=== PATIENT | male | born 1965 | race Caucasian/White ===

== ENCOUNTER 2016-12-30 18:42 | Emergency (ER) | payer BC ==
--- NOTE | 2016-12-30 19:31 | ED ---
Psych HPI - General Chief Complaint: Psychiatric Symptoms Stated Complaint: Mental health Time Seen by Provider: 12/30/16 18:49 Source: patient, RN notes reviewed Mode of arrival: ambulatory - History of Present Illness Initial Comments: Patient is a 51-year-old male presents to the emergency room for psych evaluation. Patient states he has a history of depression. Patient states he had a divorce a few years ago which has caused him to be depressed. Patient states over the past 2 months he has not been feeling like himself. Patient states he can't put a finger on what is causing it. Patient states that he takes Lexapro. Patient states Lexapro has not been helping. Patient states he feels like he can't take care of his son. Patient denies any suicidal ideations but at times thinks about going to sleep and not waking up. Patient denies homicidal ideations. Patient denies visual or auditory hallucinations. Patient does state he has a history of alcohol abuse. Patient states he used to drink large amounts of liquor about 4 years ago. Patient states over the past few months he drinks about 8 beers during the weekdays along with 2 shots of liquor. Patient states the last time he had any alcohol was Friday night. Patient denies illicit drug use. Patient denies any significant medical history. Patient denies chest pain, shortness of breath, headache, dizziness, abdominal pain, nausea, vomiting, diarrhea, constipation. Patient states he thinks he needs an adjustment in his medications. Patient states that he used to take Xanax that used to work for him. - Related Data Home Medications Medication Instructions Recorded Confirmed Escitalopram [Lexapro] 20 mg PO DAILY 12/30/16 12/30/16 Allergies Allergy/AdvReac Type Severity Reaction Status Date / Time No Known Allergies Allergy Verified 12/30/16 19:39 Review of Systems ROS Statement: Those systems with pertinent positive or pertinent negative responses have been documented in the HPI. ROS Other: All systems not noted in ROS Statement are negative. Past Medical History Past Medical History: No Reported History History of Any Multi-Drug Resistant Organisms: None Reported Past Surgical History: Hernia Repair Past Psychological History: Depression Smoking Status: Current some day smoker Past Alcohol Use History: Occasional Past Drug Use History: None Reported General Exam - General Exam Comments Initial Comments: Sitting in exam room, no acute distress. Limitations: no limitations General appearance: alert, in no apparent distress Head exam: Present: atraumatic, normocephalic, normal inspection Eye exam: Present: normal appearance ENT exam: Present: normal exam Neck exam: Present: normal inspection Respiratory exam: Present: normal lung sounds bilaterally. Absent: respiratory distress Cardiovascular Exam: Present: regular rate, normal rhythm, normal heart sounds Extremities exam: Present: normal inspection Back exam: Present: normal inspection Neurological exam: Present: alert, oriented X3, CN II-XII intact, normal gait Psychiatric exam: Present: normal affect, normal mood Skin exam: Present: warm, dry, intact, normal color. Absent: rash Course Vital Signs 12/30/16 12/30/16 18:47 22:24 Temperature 97.0 F L 97.4 F L Pulse Rate 64 58 L Respiratory 18 16 Rate Blood Pressure 166/98 127/82 O2 Sat by Pulse 97 98 Oximetry Medical Decision Making - Medical Decision Making Patient is a 51-year-old male presents to the emergency room for psych evaluation. Patient medically cleared to be evaluated by psych. Patient was evaluated by psych and does meet admission criteria. However, there are no rooms open inside the hospital at this time. Patient's brother and sister-in- law agreed to take patient home and will keep a close eye on patient and keep him safe. Patient be brought here tomorrow morning for reevaluation and possible admission. - Lab Data Lab Results 12/30/16 Range/Units 19:54 Urine Opiates Screen Not Detected (NotDetected) Ur Oxycodone Screen Not Detected (NotDetected) Urine Methadone Screen Not Detected (NotDetected) Ur Propoxyphene Screen Not Detected (NotDetected) Ur Barbiturates Screen Not Detected (NotDetected) U Tricyclic Antidepress Not Detected (NotDetected) Ur Phencyclidine Scrn Not Detected (NotDetected) Ur Amphetamines Screen Not Detected (NotDetected) U Methamphetamines Scrn Not Detected (NotDetected) U Benzodiazepines Scrn Not Detected (NotDetected) Urine Cocaine Screen Not Detected (NotDetected) U Marijuana (THC) Screen Not Detected (NotDetected) Disposition Clinical Impression: Depression, Suicidal ideation Disposition: HOME SELF-CARE Condition: Stable Instructions: Depression (ED) Additional Instructions: Please return tomorrow morning. If any new symptom arises or symptoms worsen, return to ER as soon as possible. Referrals: Bryce Curry DO [Primary Care Provider] - 1-2 days Time of Disposition: 22:18
[2016-12-30] MEDS ORDERED: LORazepam 1 MG TAB PO STA (21:17)
[2016-12-30 22:25] VITALS: BP 127/82; PULSE 58; RESP 16; TEMP 97.4
== END 2016-12-30 22:25 | disposition home or self-care (01) ==
LOC: EC 18:42
DX: F32.9 Major depressive disorder, single episode, unspecified (principal); R45.851 Suicidal ideations; F17.200 Nicotine dependence, unspecified, uncomplicated; Z79.899 Other long term (current) drug therapy
CPT/HCPCS: 80306; 82075; 99284

== ENCOUNTER 2016-12-31 09:24 | Inpatient (IN) | payer BC ==
[2016-12-31] MEDS ORDERED: NICOTINE 21MG/24HR PATCH TRANSDERM STA (09:54)
--- NOTE | 2016-12-31 10:12 | ED ---
General Adult HPI - General Chief complaint: Psychiatric Symptoms Stated complaint: mental health Time Seen by Provider: 12/31/16 09:30 Source: patient, family, RN notes reviewed Mode of arrival: ambulatory Limitations: no limitations - History of Present Illness Initial comments: This is a 51-year-old male who presents emergency Department with a past history significant for depression. Patient comes in today after having been seen in the emergency department last night for increasing depression. Patient was supposed to be transferred to a psychiatric facility be did not want [facility] so if safe home was found for him and he went home with those people and return this morning because of the depression. Patient also states she is a daily drinker but hasn't drank since Friday. Patient does state that all of a sudden he has lost his motivation and does not even want to get up in the morning. Patient stopped going to work about 6 months ago and he recently got another job and he woke up Friday morning didn't go to work didn't answer the phone when his boss was calling him. Stated he just had no energy anymore to do any of that. Patient states he is not suicidal or homicidal even though he is made some comments that people could construe is suicidal he states he has not. According to family he made some comments about not wanting to see his 12- year-old son and according to them that is significant because he lives to see his son. - Related Data Home Medications Medication Instructions Recorded Confirmed Escitalopram [Lexapro] 20 mg PO DAILY 12/30/16 12/31/16 Allergies Allergy/AdvReac Type Severity Reaction Status Date / Time No Known Allergies Allergy Verified 12/31/16 11:10 Review of Systems ROS Statement: Those systems with pertinent positive or pertinent negative responses have been documented in the HPI. ROS Other: All systems not noted in ROS Statement are negative. Past Medical History Past Medical History: No Reported History History of Any Multi-Drug Resistant Organisms: None Reported Past Surgical History: Hernia Repair Past Psychological History: Depression Smoking Status: Current some day smoker Past Alcohol Use History: Occasional Past Drug Use History: None Reported General Exam - General Exam Comments Initial Comments: GENERAL: Patient is well-developed and well-nourished. Patient is nontoxic and well- hydrated and is in no acute distress. ENT: Neck is soft and supple. No significant lymphadenopathy is noted. Oropharynx is clear. Moist mucous membranes. Neck has full range of motion without eliciting any pain. EYES: The sclera were anicteric and conjunctiva were pink and moist. Extraocular movements were intact and pupils were equal round and reactive to light. Eyelids were unremarkable. PULMONARY: Unlabored respirations. Good breath sounds bilaterally. No audible rales rhonchi or wheezing was noted. CARDIOVASCULAR: There is a regular rate and rhythm without any murmurs gallops or rubs. ABDOMEN: Soft and nontender with normal bowel sounds. No palpable organomegaly was noted. There is no palpable pulsatile mass. SKIN: Skin is clear with no lesions or rashes and otherwise unremarkable. NEUROLOGIC: Patient is alert and oriented x3. Cranial nerves II through XII are grossly intact. Motor and sensory are also intact. Normal speech, volume and content. Symmetrical smile. MUSCULOSKELETAL: Normal extremities with adequate strength and full range of motion. No lower extremity swelling or edema. No calf tenderness. LYMPHATICS: No significant lymphadenopathy is noted PSYCHIATRIC: Patient states he is lacking motivation to do anything. Patient stopped going to work on 2 different occasions now. Patient is told family he doesn't even want to see his son which is very atypical for him. Patient denies suicidal or homicidal ideations. Limitations: no limitations Course Vital Signs 12/31/16 09:29 Temperature 97.6 F Pulse Rate 66 Respiratory 18 Rate Blood Pressure 147/80 Medical Decision Making - Lab Data Lab Results 12/31/16 Range/Units 09:50 Urine Opiates Screen Not Detected (NotDetected) Ur Oxycodone Screen Not Detected (NotDetected) Urine Methadone Screen Not Detected (NotDetected) Ur Propoxyphene Screen Not Detected (NotDetected) Ur Barbiturates Screen Not Detected (NotDetected) U Tricyclic Antidepress Not Detected (NotDetected) Ur Phencyclidine Scrn Not Detected (NotDetected) Ur Amphetamines Screen Not Detected (NotDetected) U Methamphetamines Scrn Not Detected (NotDetected) U Benzodiazepines Scrn Detected H (NotDetected) Urine Cocaine Screen Not Detected (NotDetected) U Marijuana (THC) Screen Not Detected (NotDetected) Disposition Clinical Impression: Depression Disposition: ADMITTED IP TO THIS [facility] Time of Disposition: 11:54
[2016-12-31] MEDS ORDERED: LORazepam 1 MG TAB PO STA (11:47)
[2016-12-31] MEDS ORDERED: MAGNESIUM HYDROXIDE 2,400 MG/10 ML CUP PO PRN (12:03)
[2016-12-31] MEDS ORDERED: MAG HYDROX/AL HYDROX/SIMETH 30 ML CUP PO PRN (12:03)
[2016-12-31] MEDS ORDERED: ACETAMINOPHEN TAB 325 MG TAB PO PRN (12:03)
[2016-12-31] MEDS ORDERED: ZIPRASIDONE 20 MG VIAL IM PRN (12:03)
[2016-12-31 13:42] VITALS: BMI 28.8
[2016-12-31] MEDS: LORazepam 1 MG TAB PO PRN (16:42)
[2017-01-01] MEDS: NICOTINE 21MG/24HR PATCH TRANSDERM SCH (08:49)
[2017-01-01] MEDS: LORazepam 1 MG TAB PO PRN ×2 (08:53→21:51)
[2017-01-01] MEDS ORDERED: ESCITALOPRAM 20 MG TAB PO SCH (09:00)
[2017-01-01 09:40] LABS: Basophils # (A) 0.1 k/uL (0-0.2); Basophils % (A) 1 %; CH 33.6; CHCM 32.9; Eosinophils # (A) 0.2 k/uL (0-0.7); Eosinophils % (A) 2 %; HCT 51.4 % (39.0-53.0); HDW 2.18; HGB 16.6 gm/dL (13.0-17.5); Luc % (Auto) 1; Lymphocytes # (A) 1.8 k/uL (1.0-4.8); Lymphocytes % (A) 23 %; MCH 33.2 pg (25.0-35.0); MCHC 32.4 g/dL (31.0-37.0); MCV 102.7 fL (80.0-100.0); Macrocytosis Slight; Mean Platelet Volume 6.9; Monocytes # (A) 0.5 k/uL (0-1.0); Monocytes % (A) 6 %; Neutrophils # (A) 5.4 k/uL (1.3-7.7); Neutrophils % (A) 67 %; RDW 13.6 % (11.5-15.5); WBC 8.1 k/uL (3.8-10.6); WBC (Perox) 8.17
[2017-01-01 10:17] LABS: ALT 23 U/L (21-72); AST 18 U/L (17-59); Alkaline Phosphatase 58 U/L (38-126); Anion Gap 13 mmol/L; Bilirubin, Delta 0.3 mg/dL (0.0-0.2); Blood Urea Nitrogen 17 mg/dL (9-20); Calcium 9.6 mg/dL (8.4-10.2); Carbon Dioxide 22 mmol/L (22-30); Chloride 105 mmol/L (98-107); Glucose 114 mg/dL (74-99); Non-African American GFR(MDRD) >60 (>60 ml/min/1.73 sqM); Potassium 4.4 mmol/L (3.5-5.1); Sodium 140 mmol/L (137-145); Total Bilirubin 0.6 mg/dL (0.2-1.3); Total Protein 7.6 g/dL (6.3-8.2)
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
--- NOTE | 2017-01-01 13:29 | CONS ---
DATE OF CONSULTATION: REASON FOR CONSULTATION: Medical management and management of alcohol withdrawal and smoking cessation counseling. HISTORY OF PRESENT ILLNESS: Mr. Monroy is a 51-year-old male with known history of major depression who came to the hospital emergency room with his brother as he was not feeling well and has been increasingly depressed recently. Patient was supposed to be transferred to a psychiatric facility, but he did not want to go out of town so he went home and returned back to the hospital with increased depression. Apparently, patient has been drinking every day 6 to 8 beers a day and also smokes 2 packs per day. Patient has been daily drinker for the past 10 years and he says that he lost all his motivation in his life and feeling very depressed. Denied any suicidal ideation. Patient stopped going to work about 6 months ago. He just says that he does not have any energy anymore. Patient was started on Paxil 6 months ago in February 2016, but he said it did not help him. According to family, he made some comments about not wanting to see his 12-year-old son and according to them that is significant because he lives to see his son. Patient was about 10 years ago. Currently otherwise denied any fever or chills. No complaint of chest pain or short of breath. No nausea, vomiting, or abdominal pain. No recent illnesses. No sick contacts at home. Other fourteen-point review of systems negative except as above. PAST MEDICAL HISTORY: Depression, nicotine addiction, and alcohol abuse. PAST SURGICAL HISTORY: Hernia repair at age 19. SOCIAL HISTORY: Currently every day smoker about 2 packs per day, drinks about 6 to 8 beers per day. Denied any marijuana. Denied any drugs or IVDU. FAMILY HISTORY: Brother is diabetic and mother had lung cancer. No known drug allergies. Home medications include Lexapro. PHYSICAL EXAMINATION: A 51-year-old male sitting in the bed comfortably. Awake, alert, oriented x3. He appears to be in no apparent distress. VITALS: Blood pressure is 121/71, pulse is 66, respirations 16, temperature afebrile, pulse ox saturating well on room air. HEENT: Atraumatic, normocephalic. Neck is supple. No JVD. CVS EXAM: S1, S2 heard. No murmurs, no gallop. LUNGS: Bilateral air entry is present. No wheezing. No crackles. Nonlabored breathing. ABDOMEN: Soft and nontender. Bowel sounds are present. 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 No focal deficit. EXTREMITIES: No edema. Pulses palpable bilaterally. No clubbing or cyanosis. PSYCHIATRIC: Cooperative, depressed, nonsuicidal at this time. LABORATORY DATA: WBC 8.1, hemoglobin 16.6, platelets 221. MCV 102.7. UDS is positive for benzodiazepines. IMPRESSION: 1. Major depression. Denied any suicidal ideation at this time. 2. Nicotine addiction, counseled extensively. 3. Alcohol abuse, monitor for alcohol withdrawal symptoms. 4. Macrocytosis most likely secondary to alcohol abuse. 5. UDS is positive for benzodiazepines. DISCUSSION AND PLAN: Patient will be continued on antidepressants as per psychiatry recommendations and continue to monitor the patient for alcohol withdrawal symptoms. Patient was ( ) to smoking patch and check TSH level and electrolytes. Follow up closely. Further recommendations based on the clinical course. Will check hepatitis panel as well. Thank you for the consult. Will continue to follow.
[2017-01-01] MEDS: FOLIC ACID 1 MG TAB PO SCH (13:46)
[2017-01-01] MEDS: THIAMINE 100 MG TAB PO SCH (13:46)
[2017-01-02] MEDS: ESCITALOPRAM 10 MG TAB PO SCH (07:54)
[2017-01-02] MEDS: NICOTINE 21MG/24HR PATCH TRANSDERM SCH (07:54)
--- NOTE | 2017-01-02 09:56 | P.PN ---
Progress Note - Text Interval history: The patient is found in the dining room he follows me to an interview room. He reports he is feeling better as he is around other people and prior to the admission he had been isolating for almost 2 weeks. He states his appetite is improved he was able to sleep last night. He does state he chronically struggles with nocturnal enuresis. He has been attending groups. He did speak with his sister and it appears his brother is successfully treated with citalopram, his father Lexapro and his sister Effexor XR. We discussed these medications in detail and elected to pursue Effexor XR. We discussed potential benefits and side effects of Effexor XR and his questions were answered. Mental status exam: The patient is alert he is dressed in hospital gowns. Hygiene grooming fair. Eye contact appropriate. He is pleasant and cooperative. Speech is spontaneous fluent nonpressured. He endorses a sad and anxious mood. He is beginning to feel more hopeful. He feels safe in the hospital. He is endorsing no auditory or visual hallucinations he is endorsing no specific delusions. He does not appear hypomanic or manic. Insight and judgment limited. He does seem to struggle with concentration at times. I do need to repeat information presented to him. He demonstrates no verbal or physical aggressiveness. There is no tremulousness activity. Plan: We will continue tapering him off of Lexapro we will initiate Effexor XR 37.5 mg daily and we'll titrate this further during the course of the admission. We're utilizing the Effexor XR as it is in a different category of antidepressant she has not yet tried and his sister is successfully using it for depressive and anxiety symptoms. We will continue to monitor for alcohol withdrawal phenomenon however vitals are stable area he is encouraged to attend all groups we will monitor him for safety. He requires continued hospitalization for further stabilization of mood and anxiety symptoms that have caused significant psychosocial dysfunction. He states he does not feel he can attend inpatient chemical dependency treatment but is willing to "double up on AA meetings".
[2017-01-02 10:46] LABS: Appearance,Urine Clear (Clear); Bilirubin,Urine Negative (Negative); Glucose,Urine (UA) Negative (Negative); Ketones,Urine Negative (Negative); Leukocyte Esterase,Urine Negative (Negative); Nitrite,Urine Negative (Negative); Protein,Urine Negative (Negative); UA Billing (MACRO vs. MICRO) CHEM; Urobilinogen,Urine <2.0 mg/dL (<2.0)
[2017-01-02] MEDS: THIAMINE 100 MG TAB PO SCH (11:25)
[2017-01-02] MEDS: FOLIC ACID 1 MG TAB PO SCH (11:25)
[2017-01-02] MEDS: VENLAFAXINE HCL ER 37.5 MG CAP PO SCH (11:25)
[2017-01-02] MEDS: LORazepam 1 MG TAB PO PRN (17:22)
[2017-01-03 06:41] VITALS: RESP 16
[2017-01-03] MEDS: NICOTINE 21MG/24HR PATCH TRANSDERM SCH (09:46)
[2017-01-03] MEDS: ESCITALOPRAM 10 MG TAB PO SCH (09:46)
[2017-01-03] MEDS: VENLAFAXINE HCL ER 37.5 MG CAP PO SCH (09:47)
--- NOTE | 2017-01-03 10:14 | P.PN ---
Progress Note - Text Interval history: The patient is found in his room he follows me to an interview room. He states he's feeling more down today he is concerned what his son will think about this psychiatric hospitalization. He states his ex- is a "evil woman" and likely will not tell his son appropriate things regarding the hospitalization. He states he was able to sleep his appetites improving he has been trying to participate in the milieu. He endorses feelings of depression and sadness in terms of suicidal thoughts he reports he feels safe here. We reviewed the transition from Lexapro to Effexor XR his questions were answered. Mental status exam: The patient is alert he seated calmly eye contact is appropriate speech is fluent and spontaneous nonpressured. He endorses a depressed mood with some hopeless thinking he feels safe in the hospital. No homicidal ideation. He endorses no auditory or visual hallucinations he endorses no specific delusions. There is no evidence of psychosis. He does not appear hypomanic or manic. Insight and judgment limited. Cognitively he is grossly intact he is fully oriented. He demonstrates no tremulous activity he demonstrates no verbal or physical aggressiveness. Plan: The patient will continue on his current medication tomorrow we will discontinue the Lexapro and increase the Effexor XR to 75 mg daily. Vital signs reviewed. We will continue to monitor him for safety and encourage his participation in the milieu. I believe he has a support meeting scheduled for tomorrow.
[2017-01-03] MEDS: THIAMINE 100 MG TAB PO SCH (11:55)
[2017-01-03] MEDS: FOLIC ACID 1 MG TAB PO SCH (11:55)
[2017-01-03] MEDS: LORazepam 1 MG TAB PO PRN (15:43)
[2017-01-04] MEDS: NICOTINE 21MG/24HR PATCH TRANSDERM SCH (09:18)
[2017-01-04] MEDS: VENLAFAXINE HCL ER 75 MG CAP PO SCH (09:19)
[2017-01-04] MEDS: FOLIC ACID 1 MG TAB PO SCH (12:08)
[2017-01-04] MEDS: THIAMINE 100 MG TAB PO SCH (12:08)
[2017-01-04] MEDS: LORazepam 1 MG TAB PO PRN (20:17)
[2017-01-05] MEDS: NICOTINE 21MG/24HR PATCH TRANSDERM SCH (08:58)
[2017-01-05] MEDS: VENLAFAXINE HCL ER 75 MG CAP PO SCH (08:59)
--- NOTE | 2017-01-05 11:19 | PN ---
DATE OF SERVICE: 01/04/2017 CHIEF COMPLAINT: The patient was admitted due to increasing problems with depression and anxiety. He developed suicide thoughts. He had the thought of putting a gun in his mouth, though stated that he does not have impulse to act out on that. INTERVAL HISTORY: Patient has been doing fairly well. He did receive Ativan yesterday afternoon for anxiety. He had a quiet evening last night. He slept fairly well. Today he has been up and about. He spends a fair amount of time in his room, though he does come out in the day area. He has been attending groups and seems to get benefit from those. He feels that his medications have been helping. His mood is improved. He does not voice any thoughts of self-harm. He is hopeful to be discharged in the near future. He has been started on Effexor, the dose was increased yesterday to 75 mg a day. He has not had any problems with the medication increase. He feels that the medication has been more helpful than the Lexapro was. He said he had a family meeting that went well. He has not had change in his general health. He tolerates his psychotropic medications. MENTAL STATUS: Patient gave fairly good eye contact. Psychomotor activity was slow. Speech was monotone. He did not say a lot. He gave direct answers to questions. His thoughts were clear. His affect was blunted. His mood was quiet. He did not appear to be distressed. ASSESSMENT: I will continue the current diagnosis and treatment plan. We will continue to engage the patient in individual and group therapeutic activities. He will continue Effexor 75 mg a day. I have reviewed side effects and treatment issues related to initiation of the Effexor. We will continue to focus on stabilization and discharge planning.
[2017-01-05] MEDS: THIAMINE 100 MG TAB PO SCH (12:12)
[2017-01-05] MEDS: FOLIC ACID 1 MG TAB PO SCH (12:12)
[2017-01-05] MEDS: LORazepam 1 MG TAB PO PRN (12:12)
[2017-01-05] MEDS ORDERED: LORazepam 0.5 MG TAB PO PRN (17:21)
[2017-01-05] MEDS ORDERED: LORazepam 1 MG TAB PO PRN (22:00)
[2017-01-06 06:09] VITALS: BP 111/61; PULSE 65; TEMP 97.7
--- NOTE | 2017-01-06 08:54 | PN ---
DATE OF SERVICE: 01/05/2017 CHIEF COMPLAINT: The patient was admitted due to increasing problems with depression and anxiety. He had suicide thoughts including putting a gun in his mouth. He noted that he did not have the impulse to act out. INTERVAL HISTORY: Patient has been doing fairly well. He had a quiet evening last night. He slept well. He notes that when he takes Ativan in the morning time for anxiety he does feel tired afterwards. He wonders about a lower dose in the daytime. He sees that the evening dose of Ativan helps him sleep. He has been out in the day area. He interacts with others. He attends groups and is appropriate. He had a family meeting today with his brother, sister and [id number]. He says his family is close and they keep in good touch with one another. He thought the family meeting went well. He notes that his mood has been improving. He had some down mood and anxiety Friday. He cannot really identify the precipitants to that. He says through the weekend things have been better for him. He has a better outlook. He has not had change in his general health. He tolerates his psychotropic medications. MENTAL STATUS: Patient gave good eye contact. Psychomotor activity was a little slow. Speech was soft. He answered questions appropriately. His thoughts were clear and coherent. He was somewhat spontaneous. His affect was a little restricted. His mood was even. He did not appear to be distressed. ASSESSMENT: I will continue the current diagnosis and treatment plan. We will continue Effexor 75 mg a day. He may benefit from an increased dose though that will be deferred to Dr. Hoffmann. I will reduce her daytime p.r.n. Ativan to 0.5 mg a day and continue his evening p.r.n. dose at 1 mg. He thought that would be a better plan for him. He is making progress. I would anticipate the patient being discharged in the near-term. We will coordinate with outpatient resources for follow-up care.
[2017-01-06] MEDS: VENLAFAXINE HCL ER 75 MG CAP PO SCH (08:56)
[2017-01-06] MEDS: NICOTINE 21MG/24HR PATCH TRANSDERM SCH (08:56)
--- NOTE | 2017-01-06 09:42 | P.DS ---
Providers Date of admission: 12/31/16 11:54 Expected date of discharge: 01/06/17 Attending physician: Rommel Hoffmann Consults: 12/31/16 12:03 Consult Physician Routine Consulting Provider: Miguel Segundo Consult Reason/Comments: H & P and medical care Do you want consulting provider notified?: Already Contacted Primary care physician: Bryce Harperlo - Discharge Diagnosis(es) (1) Major depressive disorder, recurrent severe without psychotic features Current Visit: Yes Status: Acute Priority: High (2) Alcohol use disorder Current Visit: Yes Status: Acute Priority: High (3) Generalized anxiety disorder Current Visit: Yes Status: Acute Priority: Medium Hospital Course: Brief summary of admission note: This patient is a 51-year-old male who was admitted to the mental health unit through the emergency room for worsening symptoms of depression and anxiety with suicidal thinking. He had reported that he felt depressed was sad and tearful. He described having no casey or happiness in his life. Sleep had been impaired energy had been low. He also described having generalized anxiety symptoms. His psychiatric symptoms occur in the context of alcohol use disorder as he consumes at least 6-8 beers a day. For full details please refer to my psychiatric evaluation dated 01/01/2017. Summary of hospital course: The patient was admitted to the mental health unit he signed in voluntarily. We reviewed his presenting symptoms and medication options. We waited until he was able to contact his family to discuss medications they have tried. His sister had been successfully treated with Effexor XR his father was treated with Lexapro which is the medicine he presented on. The patient reported that the Lexapro has provided no benefit and we cross tapered him off of that medication onto Effexor XR. Ativan was used to prevent any alcohol withdrawal symptoms. He did not demonstrate any significant alcohol withdrawal symptoms. He was seen by the ring cutter lathe operator for routine medical exam. He appropriately participated in groups he demonstrated no agitated behavior. He was involved in a support meeting over the weekend and found that productive. He is noting improvement of his symptoms he is reporting no suicidal ideation and feels ready to be transitioned to outpatient care. Several times we spoke to the patient about attending inpatient chemical dependency treatment however he was not motivated for that level of care. Mental status exam: The patient is a male appearing his stated age he seated calmly in the chair eye contact is appropriate. He is pleasant and cooperative. He reports his mood is "better" he denies having any suicidal or homicidal ideation intent or plan. He is reporting no auditory or visual hallucinations he is reporting no specific delusions. There is no evidence of psychosis. He is endorsing no racing thoughts there is no evidence of tangential thinking loose associations or flight of ideas. He demonstrates no verbal or physical aggressiveness. No tremulous activity noted. Cognitively he remains oriented to person place and date. Insight and judgment have sufficiently improved to warrant discharge to outpatient care. Affect is more appropriately expressive. Hygiene grooming adequate. Impressions 1. Major depressive disorder recurrent severe without psychosis, alcohol use disorder, generalized anxiety disorder 2. Psychosocial dysfunction secondary to psychiatric symptoms. Plan: The patient will be discharged from the mental health unit today. He will continue on Effexor XR 75 mg daily. This medication may warrant further titration in the outpatient setting. Social work will arrange outpatient mental health follow-up. Several times during the admission we discussed having him go to inpatient chemical dependency treatment for his alcohol use disorder however he is not willing to participate. He is familiar with AA groups and states he would attend more frequently. He is instructed to abstain from any alcohol use. He is willing to follow-up with an outpatient mental health clinician to discuss his depressive, anxiety, and alcohol use symptoms. He is reporting no suicidal or homicidal ideation. He is capable of participating in his own activities of daily living. There is no imminent safety risk he is appropriate for transition to outpatient mental healthcare. He is instructed to return to the hospital with any acute safety concerns. Plan - Discharge Summary New Discharge Prescriptions: Nicotine 21Mg/24Hr Patch [Habitrol] 1 patch TRANSDERM DAILY #12 patch Venlafaxine HCl ER [Effexor XR] 75 mg PO DAILY #30 cap.er.24h Discharge Medication List Nicotine 21Mg/24Hr Patch [Habitrol] 1 patch TRANSDERM DAILY #12 patch 01/06/17 [ Rx] Venlafaxine HCl ER [Effexor XR] 75 mg PO DAILY #30 cap.er.24h 01/06/17 [Rx] Follow up Appointment(s)/Referral(s): Bryce Curry DO [Primary Care Provider] - 1-2 days
[2017-01-06] MEDS: FOLIC ACID 1 MG TAB PO SCH (12:18)
[2017-01-06] MEDS: THIAMINE 100 MG TAB PO SCH (12:18)
== END 2017-01-06 14:34 | disposition home or self-care (01) | DRG 885 ==
LOC: EC 09:24 → 3MHU 11:54
PROVIDERS: ADMIT Psychiatry & Neurology Psychiatry; ATTEND Psychiatry & Neurology Psychiatry
DX: F33.2 Major depressive disorder, recurrent severe without psychotic features (principal); R45.851 Suicidal ideations; F10.239 Alcohol dependence with withdrawal, unspecified; D75.89 Other specified diseases of blood and blood-forming organs; F17.210 Nicotine dependence, cigarettes, uncomplicated; F41.1 Generalized anxiety disorder; F59 Unspecified behavioral syndromes associated with physiological disturbances and physical factors; N39.44 Nocturnal enuresis; Z80.1 Family history of malignant neoplasm of trachea, bronchus and lung; Z79.899 Other long term (current) drug therapy
CPT/HCPCS: 80053; 80306; 81003; 82075; 82248; 84443; 85025; 99285

== ENCOUNTER → 2020-08-18 | Outpatient (CLI) | payer BC ==
[2020-08-18 11:35] LABS: HCT 50.1 % (39.0-53.0); HGB 16.5 gm/dL (13.0-17.5); MCH 32.7 pg (25.0-35.0); MCHC 32.9 g/dL (31.0-37.0); MCV 99.5 fL (80.0-100.0); Mean Platelet Volume 7.6; Platelet Count 275 k/uL (150-450); RBC 5.03 m/uL (4.30-5.90); RDW 12.8 % (11.5-15.5); WBC 8.5 k/uL (3.8-10.6)
[2020-08-18 11:43] LABS: Appearance,Urine Clear (Clear); Bilirubin,Urine Negative (Negative); Blood,Urine Negative (Negative); Color,Urine Yellow; Glucose,Urine (UA) Negative (Negative); Ketones,Urine Negative (Negative); Leukocyte Esterase,Urine Negative (Negative); Nitrite,Urine Negative (Negative); PH, Urine 5.5 (5.0-8.0); Protein,Urine Negative (Negative); Specific Gravity,Urine 1.012 (1.001-1.035); Urobilinogen,Urine <2.0 mg/dL (<2.0)
[2020-08-18 11:48] LABS: ALT 42 U/L (4-49); AST 35 U/L (17-59); African American GFR (CKD) >90 (>60 ml/min/1.73 sqM); Albumin 4.4 g/dL (3.5-5.0); Alkaline Phosphatase 84 U/L (38-126); Anion Gap 6 mmol/L; Blood Urea Nitrogen 14 mg/dL (9-20); Calcium 9.5 mg/dL (8.4-10.2); Carbon Dioxide 28 mmol/L (22-30); Chloride 103 mmol/L (98-107); Glucose 107 mg/dL (74-99); Non-African American GFR(CKD) >90 (>60 ml/min/1.73 sqM); Potassium 5.3 mmol/L (3.5-5.1); Sodium 137 mmol/L (137-145); Total Bilirubin 0.5 mg/dL (0.2-1.3); Total Protein 7.6 g/dL (6.3-8.2)
[2020-08-18 11:54] LABS: INR 0.9 (<1.2); Partial Thromboplastin Time 25.7 sec (22.0-30.0); Prothrombin Time 9.6 sec (9.0-12.0)
== END | disposition home or self-care (01) ==
LOC: LABPAT 10:12
PROVIDERS: ATTEND Orthopaedic Surgery
DX: Z01.818 Encounter for other preprocedural examination (principal); Z01.812 Encounter for preprocedural laboratory examination
CPT/HCPCS: 36415; 80053; 81003; 85027; 85610; 85730; 86850; 86900; 86901; 87070; 93005

== ENCOUNTER 2020-08-29 12:08 | Day surgery (SDC) | payer BC ==
[2020-08-25 12:13] VITALS: BMI 32.8
[~2020-08-29 12:08] MED LIST: ACETAMINOPHEN TAB 500 MG TAB PO PRN; DEXAMETHASONE SOD PHOSPHATE 4 MG/ML 1 ML VIAL IV ONE; GABAPENTIN 300 MG CAP PO PRN; HYDROmorphone 0.5 MG/0.5 ML SYRINGE IVP PRN; LIDOCAINE 1% (10MG/ML) FOR IV START INTRADERMA PRN; MELOXICAM 7.5 MG TAB PO PRN; MIDAZOLAM 2 MG/2 ML VIAL IV PRN; ONDANSETRON 4 MG/2 ML VIAL IVP ONE; TRANEXAMIC ACID 1,000 MG in SODIUM CHLORIDE 0.9% 100 ML IVPB PRN
[2020-08-29] MEDS ORDERED: LIDOCAINE 1% (10MG/ML) FOR IV START INTRADERMA ONE (12:55)
[2020-08-29] MEDS: LACTATED RINGERS 1,000 ML IV SCH (13:00)
[2020-08-29] MEDS ORDERED: diazePAM 5 MG TAB PO PRN (13:20)
[2020-08-29] MEDS ORDERED: hydrOXYzine pamoate 25 MG CAP PO PRN (13:20)
[2020-08-29] MEDS ORDERED: MAGNESIUM HYDROXIDE 2,400 MG/10 ML CUP PO PRN (13:20)
[2020-08-29] MEDS ORDERED: HYDROmorphone 0.5 MG/0.5 ML SYRINGE IVP PRN (13:20)
[2020-08-29] MEDS ORDERED: HYDROmorphone 1 MG/ML 1 ML SYRINGE IVP PRN (13:20)
[2020-08-29] MEDS ORDERED: HYDROmorphone 0.2 MG/1 ML SYRINGE IVP PRN (13:20)
[2020-08-29] MEDS ORDERED: HYDROcodone/APAP 5-325MG 1 EACH TAB PO PRN (13:20)
[2020-08-29] MEDS ORDERED: NALOXONE 0.4 MG/ML 1 ML VIAL IV PRN (13:20)
[2020-08-29] MEDS ORDERED: ONDANSETRON 4 MG/2 ML VIAL IVP PRN (13:20)
[2020-08-29] MEDS ORDERED: PROPOFOL 10 MG/ML 20 ML VIAL IV ONE (13:33)
[2020-08-29] MEDS ORDERED: fentaNYL (PF) 50 MCG/ML 2 ML AMP ONE (13:33)
[2020-08-29] MEDS ORDERED: HEPARIN SODIUM,PORCINE 10,000 UNIT/ML 1 ML VIAL ONE (13:33)
[2020-08-29] MEDS ORDERED: SODIUM CHLORIDE 0.9% IRRIG 1,000 ML BTL IRRIGATION ONE (13:33)
[2020-08-29] MEDS ORDERED: SODIUM CHLORIDE 0.9% 100 ML BAG ONE (13:33)
[2020-08-29] MEDS ORDERED: MIDAZOLAM 2 MG/2 ML VIAL ONE (13:33)
[2020-08-29] MEDS ORDERED: TRANEXAMIC ACID 1,000 MG/10 ML VIAL ONE (13:33)
[2020-08-29] MEDS ORDERED: ceFAZolin 3,000 MG in SODIUM CHLORIDE 0.9% IRRIGATIO 3,000 ML IRRIGATION ONE (13:38)
[2020-08-29] MEDS: ROPIVACAINE 246.25 MG, EPINEPHrine 0.5 MG, KETOROLAC 30 MG, cloNIDine HCL/PF 80 MCG, WA... MISCELLANE PRN ×10 (14:07→14:25)
--- NOTE | 2020-08-29 14:45 | P.OP ---
Date of Procedure: 08/29/20 Preoperative Diagnosis: Severe osteoarthritis right hip Postoperative Diagnosis: Severe osteoarthritis right hip Procedure(s) Performed: Right total hip arthroplasty with a direct anterior approach Implants: [employer] Polarstem standard size 5 [employer] R3, 3 hole hemispherical acetabular shell, 54 mm [employer] Reflection 6.5 mm cancellus screw, 20 mm 2 [employer] R3, XLPE 20 acetabular liner [employer] Oxinium femoral head 36 m, +8 All components were press-fit. The articulation is Oxinium on polyethylene. Anesthesia: spinal Surgeon: Santiago Sierra Power And Recovery Shift Engineer #1: Irasema Boateng Estimated Blood Loss (ml): 150 (66 mL returned with Cell Saver) Pathology: other (Femoral head) Condition: stable Disposition: PACU Indications for Procedure: After failure of conservative treatment we discussed the surgical and nonsurgical treatment options at length. Patient wishes to proceed with a total hip arthroplasty with a direct anterior approach. Complications specific to this procedure were discussed at length, including but not limited to infection, leg length discrepancy, dislocation, nerve injury, and fracture. Covid-19 was also discussed at length with the patient, and they are aware of the current policies and procedures. The patient was given the option of delaying surgery, but they elect to proceed knowing these risks. Patient is aware of all these complications and informed consent was obtained Operative Findings: The operative findings are consistent with severe osteoarthritis of the right hip Description of Procedure: Patient was seen and evaluated in the preoperative area and the consent was reviewed. The operative site was marked with a skin marker. The patient was then brought to the operating room and given preoperative antibiotics intravenously. 1 g of Tranexamic acid was also given intravenously. A spinal anesthetic was administered by the anesthesia department. The patient was then placed on the Faison table with the bony prominences well-padded. The hip area was then prepped with a ChloraPrep solution and draped in the usual sterile fashion. A universal timeout was then performed, which confirmed the patient's name, surgical site, ALLERGIES, and procedure being performed on the consent. Next the incision site was located at 1 cm distal and 1 cm lateral to the anterior superior iliac spine. The skin and subcutaneous tissues were sharply incised. Incision was carefully dissected down to the fascia overlying the tensor fascia sharda muscle. This fascia was then incised in line with the incision. Care was taken to stay laterally in order to avoid injuring the lateral femoral cutaneous nerve. Next, using blunt finger dissection, the tensor fascia sharda muscle was dissected off its investing fascia. The muscle was then carefully retracted laterally with a cobra retractor over the lateral neck of the femur. Next, the circumflex vessels were identified and cauterized using the AquaMantis device. The anterior hip capsule was then exposed. The capsule was then opened and an inverted T fashion. Cobra retractors were then placed intracapsularly. The retractors were maintained intracapsular throughout the procedure. The proximal femur was then visualized. A small amount of traction was placed on the leg. The femoral neck was then osteotomized appropriate level above the lesser trochanter. A small wedge of bone was then removed from the remaining femoral head. Next, using a corkscrew the femoral head was removed from the acetabulum. On gross visual inspection, the femoral head had complete loss of articular cartilage and multiple periarticular osteophytes. The femoral head was then measured. Attention was then turned to the acetabulum. The acetabulum was exposed and any remaining labrum was excised. Sequential reaming of the acetabulum was performed using fluoroscopic guidance until there was a good bed of bleeding cancellus bone. When the appropriate size was reached, a trial was then placed. The position and fit of the trial was checked with fluoroscopy. The trial was then removed. Then, using fluoroscopic guidance, the final implant was impacted at 20 of anteversion and 40 of abduction, and fully seated in the acetabulum. 2 screws were then placed in the acetabulum. Again fluoroscopy was used to check position of the screws. Next, the liner was then impacted, with a 20 elevated liner located in the anterior superior quadrant. Component locking was confirmed. Attention was then directed to the femur. With the aid of the Faison table, the femur was externally rotated to approximately 130, extended, and adducted under the opposite leg. A side hook was then placed under the proximal femur, and the side hook elevator was used to elevate the proximal femur while releasing the capsule. Retractors were then placed. A capsular release was performed, as well as a release of the conjoined tendon, which afforded excellent visualization of the proximal femur. Next, a box osteotome was used to lateralize the proximal femur. A grain merchandising manager was then used to locate the femoral canal. Sequential broaching was then performed with appropriate size which afforded excellent fixation in the proximal femur. A trial was then placed with appropriate head and neck, and the hip was gently reduced with the aid of the Faison table. Fluoroscopy was then used to check position of the components, as well as to ensure equal leg lengths. The hip was then gently dislocated and the trials were then removed. Final implants were then impacted and the hip was again reduced. Final fluoroscopic x-rays confirmed that the components were in anatomic position, as well as equal leg lengths. The hip was also taken through range of motion, and found to be stable. The hip was then copiously irrigated with antibiotic solution with pulsatile lavage. The hip was then irrigated with Irrisept solution. The soft tissues were then injected with a ropivacaine solution, which consisted of 246.25 mg of ropivacaine, 0.5 mg of epinephrine, 30 mg of Toradol, 80 g of clonidine, and 48.45 mL of sterile water, for a total of 100 mL of fluid injected. A second dose of 1 g of Tranexamic acid was also given intravenously. Any blood collected by Cell Saver was then returned to the patient at this time. The fascia was then closed with 2-0 strata fix suture. The subcutaneous tissue was closed with 3-0 Vicryl. The subcuticular tissue was closed with 3-0 strata fix suture. The skin was then closed with Exofin skin glue. After the glue and dried, and Optifoam silver impregnated dressing was applied. The patient was then transferred to the recovery room in stable condition. The dietitian assistant RENETTA Mitchell was required due to the complexity of surgery, and the need for skilled hr administrative assistant for positioning, draping, exposure, retraction, and closure of the wound.
--- NOTE | 2020-08-29 15:28 | FL ---
Fluoroscopy INDICATION: Pain FINDINGS: Fluoroscopy time: 47 seconds. Images obtained: 2. IMPRESSIONS: 1. Documentation of fluoroscopy.
--- NOTE | 2020-08-29 15:37 | XR ---
EXAMINATION TYPE: XR Hip Limited RT DATE OF EXAM: 08/29/2020 COMPARISON: None HISTORY: Right hip replacement TECHNIQUE: AP right hip FINDINGS: Femoral and acetabular components of in place. No acute fractures are evident. Soft tissue postsurgical changes are evident. There is a small calcification in the soft tissues between the grea ter trochanter in the acetabulum. IMPRESSION: 1. No acute fractures post right hip replacement.
[2020-08-29] MEDS: SODIUM CHLORIDE 0.9% 1,000 ML IV SCH ×2 (18:28→18:31)
[2020-08-29] MEDS: HYDROcodone/APAP 5-325MG 1 EACH TAB PO PRN (18:31)
[2020-08-29] MEDS: APIXABAN 2.5 MG TABLET PO SCH (20:31)
[2020-08-29] MEDS ORDERED: SENNOSIDES-DOCUSATE SODIUM 1 EACH TAB PO SCH (21:00)
[2020-08-30] MEDS: HYDROcodone/APAP 5-325MG 1 EACH TAB PO PRN ×3 (00:48→13:24)
[2020-08-30 04:37] VITALS: RESP 18
[2020-08-30] MEDS: LACTATED RINGERS 1,000 ML IV SCH (05:19)
[2020-08-30 07:00] LABS: Basophils % (A) 0 %; Eosinophils # (A) 0.1 k/uL (0-0.7); Eosinophils % (A) 1 %; HCT 38.9 % (39.0-53.0); Lymphocytes # (A) 1.8 k/uL (1.0-4.8); Lymphocytes % (A) 13 %; MCH 33.5 pg (25.0-35.0); MCHC 33.4 g/dL (31.0-37.0); MCV 100.3 fL (80.0-100.0); Mean Platelet Volume 7.3; Monocytes % (A) 7 %; Neutrophils # (A) 11.2 k/uL (1.3-7.7); Neutrophils % (A) 79 %; Platelet Count 215 k/uL (150-450); RBC 3.87 m/uL (4.30-5.90); RDW 12.2 % (11.5-15.5); WBC 14.3 k/uL (3.8-10.6)
[2020-08-30 07:36] VITALS: BP 130/77; PULSE 61; TEMP 98.1
[2020-08-30] MEDS: APIXABAN 2.5 MG TABLET PO SCH (07:53)
--- NOTE | 2020-08-30 08:17 | P.DS ---
Providers Expected date of discharge: 08/30/20 Attending physician: Santiago Sierra Consults: 08/29/20 13:20 Consult Physician Routine Consulting Provider: Miguel Segundo Consult Reason/Comments: medical management Do you want consulting provider notified?: Yes Primary care physician: Rommel Grier - Discharge Diagnosis(es) (1) S/P total hip arthroplasty Current Visit: Yes Status: Acute (2) Osteoarthritis of right hip Current Visit: Yes Status: Acute Hospital Course: This is a 54-year-old male with known history of degenerative arthritis of the right hip. The patient presented for evaluation as an outpatient. After discussion and consideration patient elects to proceed with total hip arthroplasty. The patient is seen preoperatively by Dr. Sierra and medically cleared for surgery by their primary care physician. Patient is admitted to [facility] on 08/29/2020 for total hip arthroplasty. The procedure is performed without complication or sequelae. The patient is doing well postoperatively. Labs and vital signs are stable on day of discharge. On day of discharge patient's hip incision is healing well. There is minimal erythema. There is no drainage noted at this time. There is minimal soft tiss ue swelling to the hip and thigh. Patient has full foot and ankle motion without difficulty or pain. Calf is soft and nontender to palpation. Neurovascular status to the right lower extremity is intact. Patient is discharged home in good condition. Opioid start talking form is reviewed and signed. Please see med rec for accurate list of home medications. Plan - Discharge Summary Discharge Rx Participant: Yes New Discharge Prescriptions: New Apixaban [Eliquis] 2.5 mg PO BID 35 Days #70 tab HYDROcodone/APAP 5-325MG [[place] 5-325] 1 - 2 tab PO Q6HR PRN #48 tab PRN Reason: Pain Sennosides [Senokot] 2 tab PO DAILY PRN #60 tablet PRN Reason: Constipation Discharge Medication List Apixaban [Eliquis] 2.5 mg PO BID 35 Days #70 tab 08/30/20 [Rx] HYDROcodone/APAP 5-325MG [[place] 5-325] 1 - 2 tab PO Q6HR PRN #48 tab 08/30/20 [Rx] Sennosides [Senokot] 2 tab PO DAILY PRN #60 tablet 08/30/20 [Rx] Follow up Appointment(s)/Referral(s): Santiago Sierra DO [Doctor of Osteopathic Medicine] - 2 Weeks Activity/Diet/Wound Care/Special Instructions: Weightbearing as tolerated with walker. Leave dressing intact. Dressing may be removed by home care nurse or by patient in 10 days. May shower with dressing on. Please take Eliquis 2.5mg BID for 35 days to prevent blood clots. Recommend use of compression stockings daily until follow up to help prevent swelling and blood clots. May remove at night before sleeping. Please follow-up with [facility] in 2 weeks and call with any questions or concerns, . Discharge Disposition: HOME WITH HOME HEALTH SERVICES
--- NOTE | 2020-08-30 10:40 | P.CONS ---
History of Present Illness - Reason for Consult Leukocytosis - History of Present Illness Patient is a admitted for right total hip arthroplasty direct anterior approach and patient is clinically doing well ambulating patient admitted past as did not move his bowel get patient is being discharged today which is appropriate patient does have leukocytosis secondary to surgery patient doesn't have any signs or symptoms of sepsis patient denies and doesn't have any cough fever chills. Patient denied any dysuria. Review of Systems REVIEW OF SYSTEMS: CONSTITUTIONAL: No fever, no malaise, no fatigue. HEENT: No recent visual problems or hearing problems. Denied any sore throat. CARDIOVASCULAR: No chest pain, orthopnea, PND, no palpitations, no syncope. PULMONARY: No shortness of breath, no cough, no hemoptysis. GASTROINTESTINAL: No diarrhea, no nausea, no vomiting, no abdominal pain. NEUROLOGICAL: No headaches, no weakness, no numbness. HEMATOLOGICAL: Denies any bleeding or petechiae. GENITOURINARY: Denies any burning micturition, frequency, or urgency. MUSCULOSKELETAL/RHEUMATOLOGICAL: Denies any joint pain, swelling, or any muscle pain. ENDOCRINE: Denies any polyuria or polydipsia. The rest of the 14-point review of systems is negative. Past Medical History Past Medical History: Deep Vein Thrombosis (DVT), Osteoarthritis (OA) Additional Past Medical History / Comment(s): DVT years ago in right shoulder- tx. w/coumadin History of Any Multi-Drug Resistant Organisms: None Reported Past Surgical History: Hernia Repair Past Anesthesia/Blood Transfusion Reactions: No Reported Reaction Past Psychological History: Depression Smoking Status: Current every day smoker Past Alcohol Use History: Occasional Additional Past Alcohol Use History / Comment(s): smokes 1-1 1/2ppd, has smoked for 30 yrs. Past Drug Use History: None Reported Medications and Allergies Home Medications Medication Instructions Recorded Confirmed Type Apixaban [Eliquis] 2.5 mg PO BID 35 Days #70 tab 08/30/20 Rx HYDROcodone/APAP 5-325MG [[place] 1 - 2 tab PO Q6HR PRN #48 tab 08/30/20 Rx 5-325] Sennosides [Senokot] 2 tab PO DAILY PRN #60 tablet 08/30/20 Rx Allergies Allergy/AdvReac Type Severity Reaction Status Date / Time No Known Allergies Allergy Verified 08/29/20 13:08 Physical Exam Vitals: Vital Signs Temp Pulse Resp BP BP Pulse Ox 08/30/20 07:35 98.1 F 61 18 130/77 97 08/30/20 03:19 98.6 F 65 18 128/76 95 08/29/20 19:48 97.9 F 60 16 132/83 95 08/29/20 17:45 63 123/73 08/29/20 17:30 72 125/72 08/29/20 17:15 52 L 116/78 08/29/20 17:00 63 149/80 08/29/20 16:45 97.4 F L 53 L 18 121/80 93 L 08/29/20 16:20 52 L 16 103/62 97 08/29/20 16:05 55 L 16 101/58 97 08/29/20 15:47 52 L 16 103/58 97 08/29/20 15:32 57 L 18 130/82 95 08/29/20 15:18 60 18 102/55 99 08/29/20 15:03 97.3 F L 69 16 112/59 97 08/29/20 13:02 97.6 F 67 148/77 98 Intake and Output 08/29/20 08/30/20 08/30/20 22:59 06:59 14:59 Intake Total 200 Balance 200 Intake: IV 200 Other: Voiding Method Toilet # Voids 2 Weight 88.6 kg PHYSICAL EXAMINATION: GENERAL: The patient is alert and oriented x3, not in any acute distress. Well developed, well nourished. HEENT: Pupils are round and equally reacting to light. EOMI. No scleral icterus. No conjunctival pallor. Normocephalic, atraumatic. No pharyngeal erythema. No thyromegaly. CARDIOVASCULAR: S1 and S2 present. No murmurs, rubs, or gallops. PULMONARY: Chest is clear to auscultation, no wheezing or crackles. ABDOMEN: Soft, nontender, nondistended, normoactive bowel sounds. No palpable organomegaly. MUSCULOSKELETAL: Deferred to orthopedic surgery EXTREMITIES: No cyanosis, clubbing, or pedal edema. NEUROLOGICAL: Gross neurological examination did not reveal any focal deficits. SKIN: No rashes. Results CBC & Chem 7: 08/30/20 05:55 08/29/20 13:00 Labs: Abnormal Lab Results - Last 24 Hours (Table) 12/16/20 Range/Units 05:55 WBC 14.3 H (3.8-10.6) k/uL RBC 3.87 L (4.30-5.90) m/uL Hct 38.9 L (39.0-53.0) % MCV 100.3 H (80.0-100.0) fL Neutrophils # 11.2 H (1.3-7.7) k/uL Assessment and Plan Plan: -Leukocytosis no evidence of infection secondary to surgery no further intervention or testing is necessary at this time. -Right hip arthroplasty: Patient is being discharged on Eliquis for DVT prophylaxis. -Nicotine use: Counseling was provided patient smokes about one and half pack of cigarettes per day.
== END 2020-08-30 13:45 | disposition home health service (06) ==
LOC: OR 12:08 → 4SSUR 16:19 → OR 08-30 13:45
PROVIDERS: ATTEND Orthopaedic Surgery
DX: M16.11 Unilateral primary osteoarthritis, right hip (principal); D72.829 Elevated white blood cell count, unspecified; F32.9 Major depressive disorder, single episode, unspecified; F17.210 Nicotine dependence, cigarettes, uncomplicated; Z86.718 Personal history of other venous thrombosis and embolism; Z98.890 Other specified postprocedural states
CPT/HCPCS: 97110; 97161; 97535; 97166; 86891; 84132; 85025; 88300; 73501 ×2; 27130; C1776; J2250; J0171; J1644; J1100; J0690 ×3; J2405; J3010; J1885; J2795; J2704; J0735; 86850; 86900; 86901

== ENCOUNTER 2022-01-30 22:50 | Emergency (ER) | payer BC ==
[2022-01-30 23:13] VITALS: RESP 16; TEMP 98.1
--- NOTE | 2022-01-31 00:02 | XR ---
EXAMINATION TYPE: XR shoulder complete RT DATE OF EXAM: 01/30/2022 COMPARISON: 10/02/2014 HISTORY: Shoulder pain TECHNIQUE: 3 views FINDINGS: There is deformity of the lateral clavicle related to old fracture. I see no acute fracture . Glenohumeral joint is intact. There are no pathologic soft tissue calcifications at the greater tub erosity. IMPRESSION: No acute abnormality of the right shoulder. No change.
--- NOTE | 2022-01-31 00:59 | ED ---
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 Patient has decreased range of motion of his right shoulder pain with motion in his right shoulder no known injury that occurred during patient's symptoms. The patient states he cannot move his right shoulder especially lifting it and elevation. 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 MD Complaint: Injury to:: right, shoulder -: hour(s) Other Extremity Injury: Shoulder: Right Handedness: right Severity scale (1-10): 2 Improves With: none Worsens With: none Context: fall Associated Symptoms: weakness, numbness, neck pain Treatments Prior to Arrival: cold therapy - Related Data Previous Rx's Medication Instructions Recorded Apixaban [Eliquis] 2.5 mg PO BID 35 Days #70 tab 08/30/20 HYDROcodone/APAP 5-325MG [[place] 1 - 2 tab PO Q6HR PRN #48 tab 08/30/20 5-325] Sennosides [Senokot] 2 tab PO DAILY PRN #60 tablet 08/30/20 Allergies Allergy/AdvReac Type Severity Reaction Status Date / Time No Known Allergies Allergy Verified 01/30/22 23:13 Review of Systems ROS Statement: Those systems with pertinent positive or pertinent negative responses have been documented in the HPI. ROS Other: All systems not noted in ROS Statement are negative. Past Medical History Past Medical History: No Reported History History of Any Multi-Drug Resistant Organisms: None Reported Past Surgical History: Hernia Repair Past Psychological History: Depression Smoking Status: Current every day smoker Past Alcohol Use History: Occasional Past Drug Use History: None Reported General Exam Limitations: no limitations General appearance: alert, in no apparent distress Head exam: Present: atraumatic, normocephalic, normal inspection Eye exam: Present: normal appearance, PERRL, EOMI. Absent: scleral icterus, conjunctival injection, periorbital swelling ENT exam: Present: normal exam, mucous membranes moist Neck exam: Present: normal inspection. Absent: tenderness, meningismus, lymphadenopathy Respiratory exam: Present: normal lung sounds bilaterally. Absent: respiratory distress, wheezes, rales, rhonchi, stridor Cardiovascular Exam: Present: regular rate, normal rhythm, normal heart sounds. Absent: systolic murmur, diastolic murmur, rubs, gallop, clicks GI/Abdominal exam: Present: soft, normal bowel sounds. Absent: distended, tenderness, guarding, rebound, rigid Extremities exam: Present: normal inspection, full ROM, normal capillary refill. Absent: tenderness, pedal edema, joint swelling, calf tenderness Back exam: Present: normal inspection Neurological exam: Present: alert, oriented X3, CN II-XII intact Psychiatric exam: Present: normal affect, normal mood Skin exam: Present: warm, dry, intact, normal color. Absent: rash Course Vital Signs 01/30/22 23:10 Temperature 98.1 F Pulse Rate 80 Respiratory 16 Rate Blood Pressure 157/80 O2 Sat by Pulse 95 Oximetry - Reevaluation(s) Reevaluation #1: 01/31/22 03:08 medical record is reviewed Reevaluation #2: 01/31/22 03:08 she is given information regarding Dima 7, questions answered regarding results Reevaluation #3: 01/31/22 03:09 symptoms improved here in the ER he feels good for discharge Medical Decision Making - Medical Decision Making 56 male with shoulder girdle injury, significant. Patient has pain control given exercises will follow-up with orthopedic surgerysol under need to basis - Radiology Data Radiology results: report reviewed (x-ray right shoulder is negative for traumatic injury), image reviewed Disposition Clinical Impression: Sprain of right shoulder Disposition: HOME SELF-CARE Condition: Good Instructions (If sedation given, give patient instructions): Shoulder Sprain (ED) Is patient prescribed a controlled substance at d/c from ED?: No Referrals: Rommel Grier DO [Primary Care Provider] - 1-2 days
[2022-01-31] MEDS ORDERED: traMADol 50 MG STARTER PACK 3 TAB BTL PO STA (03:06)
[2022-01-31] MEDS ORDERED: IBUPROFEN 600 MG STARTER PACK 4 TAB BTL PO STA (03:06)
[2022-01-31] MEDS ORDERED: KETOROLAC 15 MG/ML 1 ML VIAL IM STA (03:06)
[2022-01-31] MEDS ORDERED: Acetaminophen-Codeine 300-30mg TAB PO STA (03:06)
[2022-01-31] MEDS ORDERED: ACET/COD 300 MG/30 MG STARTER PACK 6 TAB BTL PO STA (03:06)
[2022-01-31 04:58] VITALS: BP 141/70; PULSE 72
== END 2022-01-31 04:58 | disposition home or self-care (01) ==
LOC: EC 22:50
DX: S43.401A Unspecified sprain of right shoulder joint, initial encounter (principal); F32.A Depression, unspecified; F17.200 Nicotine dependence, unspecified, uncomplicated; Z79.01 Long term (current) use of anticoagulants; Z79.899 Other long term (current) drug therapy; X58.XXXA Exposure to other specified factors, initial encounter
CPT/HCPCS: 96372; 99283

== ENCOUNTER 2022-07-26 15:14 | Emergency (ER) | payer BC ==
[2022-07-26] MEDS ORDERED: DIPH,PERTUS(ACELL)TETVAC-LF 0.5 ML VIAL IM ONE (16:30)
[2022-07-26] MEDS ORDERED: HYDROmorphone 1 MG/ML 1 ML SYRINGE IM STA (16:30)
--- NOTE | 2022-07-26 16:52 | XR ---
EXAMINATION TYPE: XR finger RT DATE OF EXAM: 07/26/2022 COMPARISON: None HISTORY: Possible injury. Pain TECHNIQUE: 3 views FINDINGS: There is comminuted fracture of the tuft of the distal phalanx of the right thumb. There is soft tiss ue laceration deformity. No evidence of a foreign body. No dislocation. IMPRESSION: Comminuted tuft fracture. No dislocation.
[2022-07-26] MEDS ORDERED: GELATIN SPONGE,ABSORB (SMALL) 1 EACH SPONGE TOPICAL STA (17:07)
[2022-07-26] MEDS ORDERED: CEPHALEXIN 500 MG CAP PO STA (17:08)
--- NOTE | 2022-07-26 18:01 | ED ---
Wound/Laceration HPI - General Chief Complaint: Wound/Laceration Stated Complaint: right thumb laceration Time Seen by Provider: 07/26/22 16:07 Source: patient Mode of arrival: ambulatory Limitations: no limitations - History of Present Illness Initial Comments: Patient is a 56-year-old male presenting with chief complaint of right thumb injury. Patient was using his crossbow today, states that he was laughing and joking with his son and not paying attention, he put his right thumb in the wrong position and the wire tore off the distal tip of the thumb as well as the nail. Patient does not know when his last tetanus shot was. He admits to pain at rest and with range of motion. No numbness or tingling. Patient otherwise has normal range of motion of the thumb. Bleeding is well controlled after applying pressure prior to arrival. - Related Data Previous Rx's Medication Instructions Recorded Apixaban [Eliquis] 2.5 mg PO BID 35 Days #70 tab 08/30/20 HYDROcodone/APAP 5-325MG [[place] 1 - 2 tab PO Q6HR PRN #48 tab 08/30/20 5-325] Sennosides [Senokot] 2 tab PO DAILY PRN #60 tablet 08/30/20 Cephalexin [Keflex] 500 mg PO Q6HR 5 Days #25 cap 07/26/22 HYDROcodone/APAP 7.5-325MG [[place] 1 tab PO Q6HR PRN 3 Days #12 tab 07/26/22 7.5-325] Allergies Allergy/AdvReac Type Severity Reaction Status Date / Time No Known Allergies Allergy Verified 07/26/22 15:50 Review of Systems ROS Statement: Those systems with pertinent positive or pertinent negative responses have been documented in the HPI. ROS Other: All systems not noted in ROS Statement are negative. Past Medical History Past Medical History: No Reported History History of Any Multi-Drug Resistant Organisms: None Reported Past Surgical History: Hernia Repair Past Psychological History: Depression Smoking Status: Current every day smoker Past Alcohol Use History: Occasional Past Drug Use History: None Reported General Exam Limitations: no limitations General appearance: alert, in no apparent distress Head exam: Present: atraumatic, normocephalic, normal inspection Eye exam: Present: normal appearance Neck exam: Present: normal inspection Right Hand Wrist exam: Present: other (Amputation of the distal tip of the right thumb as well as the nail) Neurological exam: Present: alert, oriented X3, CN II-XII intact Psychiatric exam: Present: normal affect, normal mood Course Vital Signs 07/26/22 07/26/22 15:48 18:38 Temperature 98.5 F 98.0 F Pulse Rate 76 73 Respiratory 20 18 Rate Blood Pressure 158/91 141/99 O2 Sat by Pulse 99 96 Oximetry Medical Decision Making - Medical Decision Making Patient is a 56-year-old male presenting with chief complaint of right thumb injury. Patient was not pain using his crossbow today and states that the wire ripped off the distal end of the right thumb as well as the nail. On examination bleeding is controlled. Patient has full sensation. Digital block was performed and the wound was irrigated. X-ray shows comminuted tuft fracture. Gelfoam was placed over the exposed area, followed by nonadhesive dressing and gauze. Patient was placed on Keflex and his tetanus was updated here. Prescription for Keflex and his pharmacy. Patient instructed to follow up with hand surgery is week. Follow-up with PCP. Report back to ER with any new or worsening symptoms. Discussed return parameters and answered all questions. Patient conveyed verbal understanding and agreed to the plan. I discussed this case in detail with my attending Dr. Mcghee Disposition Clinical Impression: Partial traumatic amputation of thumb through phalanx, Open fracture of tuft of distal phalanx of thumb Disposition: HOME SELF-CARE Condition: Fair Instructions (If sedation given, give patient instructions): Finger Fracture (ED), Finger Amputation (ED) Additional Instructions: Follow up with orthopedics. Report back to ER with any new or worsening symptoms. Take medication as prescribed. Prescriptions: Cephalexin [Keflex] 500 mg PO Q6HR 5 Days #25 cap HYDROcodone/APAP 7.5-325MG [[place] 7.5-325] 1 tab PO Q6HR PRN 3 Days #12 tab PRN Reason: Pain Is patient prescribed a controlled substance at d/c from ED?: No Referrals: Rommel Grier DO [Primary Care Provider] - 1-2 days Catherine Piper DO [Doctor of Osteopathic Medicine] - 1-2 days Time of Disposition: 18:01
[2022-07-26] MEDS ORDERED: ACET/COD 300 MG/30 MG STARTER PACK 6 TAB BTL PO STA (18:33)
[2022-07-26 18:39] VITALS: BP 141/99; PULSE 73; RESP 18; TEMP 98
== END 2022-07-26 18:38 | disposition home or self-care (01) ==
LOC: EC 15:14 → SUPCPDRO 15:14 → EC 18:38
DX: S68.521A Partial traumatic transphalangeal amputation of right thumb, initial encounter (principal); F32.A Depression, unspecified; F17.200 Nicotine dependence, unspecified, uncomplicated; W26.8XXA Contact with other sharp object(s), not elsewhere classified, initial encounter; Z23 Encounter for immunization
CPT/HCPCS: 73140; 90715; 99283; 90471; 96372; J1170